=== PATIENT | female | born 1965 | race Caucasian/White ===

== ENCOUNTER 2017-08-23 04:01 | Emergency (ER) | payer SELFPAY ==
[~2017-08-23 04:01] MED LIST changes: -LORA-1456 PO; -OXYC-865 PO; -PROM-110 PO
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
[2017-08-23] MEDS ORDERED: ONDANSETRON 4 MG ODT TABDP SL ONE (04:05)
[2017-08-23] MEDS ORDERED: LORazepam 0.5 MG TAB PO ONE (04:15)
[2017-08-23] MEDS ORDERED: PROMETHAZINE HCL 25 MG TAB PO ONE (04:15)
[2017-08-23] MEDS ORDERED: LORazepam 0.5 MG TAB ONE (04:17)
[2017-08-23] MEDS ORDERED: PROMETHAZINE HCL 25 MG TAB ONE (04:18)
[2017-08-23] MEDS ORDERED: NS 0.9% 150 ML BAG 150 ML ONE (04:19)
[2017-08-23] MEDS ORDERED: IOPAMIDOL 76% 75 ML INFUS BTL 75 ML ONE (04:19)
[2017-08-23] MEDS ORDERED: NS(*) 0.9% 1000 ML BAG 1,000 ML IV ONE (05:15)
[2017-08-23] MEDS ORDERED: DIAZEPAM 10 MG/2 ML SYR IVP ONE (05:15)
--- NOTE | 2017-08-23 05:25 | RADIOLOGY IMAGING REPORT ---
FACILITY: [facility] [place] PATIENT NAME: Deepa Arana : 1965 MR: [id number] V: [id number] EXAM DATE: ORDERING PHYSICIAN: PORFIRIO CERNA TECHNOLOGIST: Location: [facility] Patient: Deepa Arana : 1965 Visit/Account:[id number] Date of Sevice: 08/23/2017 RIGHT HAND: Indication: Injury. Technique: 3 views were obtained. Comparison: None. Findings: There is no evidence of fracture, dislocation, or other acute deformity. There is uniform m ineralization of the skeletal structures. There are no signs of joint space narrowing or spur formati on. There are no signs of soft tissue deformity or calcification. IMPRESSION: Negative right hand. Report Dictated By: Remington Kitchen MD at 08/23/2017 5:18 AM Report E-Signed By: Remington Kitchen MD at 08/23/2017 5:20 AM WSN:[id number]
--- NOTE | 2017-08-23 05:25 | RADIOLOGY IMAGING REPORT ---
[place] [facility] [place] Deepa Arana : 1965 MR: [id number] V: [id number] EXAM DATE: ORDERING PHYSICIAN: PORFIRIO CERNA TECHNOLOGIST: Location: [facility] [place] Patient: Deepa Arana : 1965 Visit/Account:[id number] Date of Sevice: 08/23/2017 LEFT HAND: Indication: Injury. Technique: 3 views were obtained. Comparison: None. Findings: There is no evidence of fracture, dislocation, or other acute deformity. There is uniform m ineralization of the skeletal structures. There are no signs of joint space narrowing or spur formati on. There are no signs of soft tissue deformity or calcification. IMPRESSION: Negative left hand. Report Dictated By: Remington Kitchen MD at 08/23/2017 5:20 AM Report E-Signed By: Remington Kitchen MD at 08/23/2017 5:21 AM WSN:[id number]
[2017-08-23] MEDS ORDERED: HYDROmorphone(ER ONLY) 1 MG/ML IVP ONE (05:30)
[2017-08-23 05:39] LABS: PLATELET COUNT, AUTOMATED 204 K/uL (150-450)
[2017-08-23] MEDS ORDERED: PROM-110 PO (06:27)
[2017-08-23] MEDS ORDERED: OXYC-865 PO (06:27)
[2017-08-23] MEDS ORDERED: LORA-1456 PO (06:27)
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
[2017-08-23] MEDS ORDERED: oxyCODONE/ACETAMIN 5/325MG TH 2 TAB/BOTTLE PO ONE (07:30)
[2017-08-23 08:30] VITALS: BP 152/86
== END 2017-08-23 08:51 | disposition home or self-care (01) ==
LOC: ER 04:03
DX: S60.222A Contusion of left hand, initial encounter (principal); S60.221A Contusion of right hand, initial encounter; S00.03XA Contusion of scalp, initial encounter; S19.9XXA Unspecified injury of neck, initial encounter; Y04.8XXA Assault by other bodily force, initial encounter; Z87.891 Personal history of nicotine dependence; I70.90 Unspecified atherosclerosis; K02.9 Dental caries, unspecified; Z79.899 Other long term (current) drug therapy
CPT/HCPCS: 70450; 70498; 71046; 73130; 81001; 83605; 85025; 96374; 99284; J3360; Q0169; Q9967; 82040; 82247; 82310; 82374; 82435; 82565; 82947; 84075; 84132; 84155; 84295; 84450; 84460; 84520

== ENCOUNTER → 2017-08-23 | Outpatient (CLI) | payer SELFPAY ==
[~2017-08-23] MED LIST: B CM1TAB2 PO; BACDS PO; CAR350 PO; CARI250T10 PO; CEP500 PO; DIA5 PO; DOXY150T6 PO; HYD2 PO; HYDR200T39 PO; IBUP-1455 PO; INT1APT SQ; LORA-1456 PO; LORA-633 PO; METH-632 PO; METHADONE; NOR10/325 PO; NOR5/325 PO; OND4 PO; OXYC-865 PO; OXYC40TA53 PO; OXYC40TA57 PO; PER PO; PHEN100 PO; PRE5 PO; PRO25 PO; PROM-110 PO; SIMV-42 PO; SIMV5TAB56 PO; ZOL5 PO
== END ==
LOC: AMB 03:26
PROVIDERS: ATTEND Nurse Practitioner
DX: M54.2 Cervicalgia (principal); S40.022A Contusion of left upper arm, initial encounter; S60.221A Contusion of right hand, initial encounter; S60.022A Contusion of left index finger without damage to nail, initial encounter; Y04.2XXA Assault by strike against or bumped into by another person, initial encounter
CPT/HCPCS: A0425; A0429